=== PATIENT | female | born 1930 | race Caucasian/White ===

== ENCOUNTER 2022-06-07 00:17 | Emergency (ER) | payer MEDICARE ==
[2022-06-07] MEDS ORDERED: XYLOCAINE 1% HCL 20 ML MDV ONE (00:23)
--- NOTE | 2022-06-07 00:26 | ERPHSYRPT ---
- History of Present Illness Time Seen by Provider: 06/07/22 00:22 Source: patient, EMS Exam Limitations: clinical condition Physician History: 89 years old female resident of [facility] presented in the ER via EMS with chief complaint of fall while she went to the bathroom, lost her balance and hit her left lateral eyebrow/orbital ridge against bathtub. No loss of consciousness. Has a laceration. No difficulty movements of eyeball. Patient denies injury anywhere else. Denies any chest pain palpitations or shortness of breath before or after the fall. Occurred: just prior to arrival Severity: moderate Head Injury Location: frontal Method of Injury: fell Loss of Consciousness: no loss of consciousness Associated Symptoms: denies symptoms Allergies/Adverse Reactions: No Known Drug Allergies Allergy (Verified 03/16/16 15:01) Home Medications: Clopidogrel Bisulfate [Plavix] 75 mg PO DAILY 12/14/15 [History] Donepezil HCl 10 mg PO HS 06/07/22 [History] Escitalopram Oxalate [Lexapro] 2.5 mg PO DAILY 06/07/22 [History] Famotidine 20 mg [Pepcid 20 MG] 20 mg PO BID 06/07/22 [History] Ferrous Sulfate [Ferosul] 325 mg PO BID 06/07/22 [History] Latanoprost/Pf [Latanoprost 0.005% Eye Drop] 1 drop OP HS 06/07/22 [History] Memantine HCl 10 mg PO BID 06/07/22 [History] Timolol Maleate 0.25% Eye [Timolol 0.25% Opth Kimberly 5 ML] 1 drop OP DAILY 06/07/22 [History] clonazePAM [Clonazepam] 0.125 mg PO DAILY 06/07/22 [History] clonazePAM [Clonazepam] 0.25 mg PO HS 06/07/22 [History] Hx Tetanus, Diphtheria Vaccination/Date Given: No Hx Influenza Vaccination/Date Given: Yes Hx Pneumococcal Vaccination/Date Given: Yes - Review of Systems Constitutional: No Symptoms Eyes: No Symptoms Ears, Nose, & Throat: No Symptoms Respiratory: No Symptoms Cardiac: No Symptoms Abdominal/Gastrointestinal: No Symptoms Genitourinary Symptoms: No Symptoms Musculoskeletal: Fall Skin: Skin Lesions Neurological: Headache Endocrine: No Symptoms Hematologic/Lymphatic: No Symptoms Immunological/Allergic: No Symptoms - Past Medical History Pertinent Past Medical History: Yes Neurological History: No Pertinent History ENT History: No Pertinent History Cardiac History: Angina Respiratory History: No Pertinent History Endocrine Medical History: No Pertinent History Musculoskeletal History: No Pertinent History GI Medical History: GERD History: No Pertinent History, Other Psycho-Social History: Anxiety, Depression Female Reproductive Disorders: No Pertinent History Other Medical History: some "memory troubles". increased pressure in eyes. 3 NATURAL BIRTHS - Past Surgical History Past Surgical History: Yes Neuro Surgical History: No Pertinent History Cardiac: No Pertinent History Respiratory: No Pertinent History Gastrointestinal: Cholecystectomy Genitourinary: No Pertinent History, Other Musculoskeletal: No Pertinent History Female Surgical History: Hysterectomy Other Surgical History: bilateral oophorectomy; surgery on both hands; eye surgery (pt can't remember what was done); bladder surgery "years ago, they stretched my bladder out". - Social History Smoking Status: Never smoker Exposure to second hand smoke: No Drug Use: none Patient Lives Alone: No - Nursing Vital Signs Nursing Vital Signs: Initial Vital Signs Temperature 97.0 F 06/07/22 00:18 Pulse Rate 69 06/07/22 00:18 Respiratory Rate 16 06/07/22 00:18 Blood Pressure 174/79 06/07/22 00:18 O2 Sat by Pulse Oximetry 96 06/07/22 00:18 Pain Scale Pain Intensity 5 - [place] Coma Score Best Eye Response (Vickie): (4) open spontaneously Best Verbal Response (Vickie): (5) oriented Best Motor Response (Vickie): (6) obeys commands Vickie Total: 15 - Physical Exam General Appearance: no apparent distress, alert Head Injury: contusions, lacerations (2.5 cm laceration left lateral orbital ridge. Minimal oozing. Hematoma. No step in deformity. Intact range of motion of left eyeball.), swelling, tenderness Eye Exam: bilateral eye: normal inspection, PERRL, EOMI ENT Exam: airway nml, No evidence of ENT injury, No dental injury Neck Exam: supple, trachea midline, normal alignment, c-collar in place Cardiovascular/Respiratory Exam: chest non-tender, normal breath sounds, regular rate/rhythm Gastrointestinal/Abdominal Exam: soft, No no distention Extremity Exam: non-tender, normal range of motion, normal inspection Mental Status Exam: alert, oriented x 3, cooperative impress associate Exam: PERRL, No normal hearing Coordination/Gait Exam: normal finger to nose Motor/Sensory Exam: no motor deficit, no sensory deficit, no pronator drift DTR Exam: bicep (R): 2+, bicep (L): 2+, knee (R): 2+, knee (L): 2+ Skin Exam: normal color SpO2 Interpretation: normal SpO2: 96 O2 Delivery: Room Air Procedures - Laceration/Wound Repair Left Frontal Time of Procedure: 00:26 Wound Location: Left Wound Length (cm): 2.5 Wound's Depth, Shape: into muscle, linear Wound Explored: clean Irrigated: Yes Hibiclens Prep: Yes Anesthesia: 1% Lidocaine Volume Anesthetic (ccs): 3 Wound Repaired With: sutures Suture Size/Type: 5-0, nylon Number of Sutures: 4 Sterile Dressing Applied?: Yes Ordered Tests: Active Orders 24 hr Category Date Time Status CERVICAL SPINE WO CONTRAST [CT] Stat Exams 06/07/22 00:22 Ordered FACIAL BONES WO CONTRAST [CT] Stat Exams 06/07/22 00:22 Ordered HEAD WITHOUT CONTRAST [CT] Stat Exams 06/07/22 00:22 Ordered Medication Summary Discontinued Medications Generic Name Dose Route Start Last Admin Trade Name Freq PRN Reason Stop Dose Admin Lidocaine HCl Confirm 06/07/22 00:23 Lidocaine Hcl 1% 20 Ml Mdv 20 Ml Ml Administered 06/07/22 00:24 Dose 1 ml .ROUTE .STK-MED ONE - Progress Progress: improved, re-examined Progress Note: 06/07/22 03:21 89-year-old is evaluated for ground-level fall with injury to the left lateral orbit area. Laceration is repaired. Obtain CT head which is negative for any acute intracranial findings. CT cervical spine negative. CT facial bones showed fracture orbit with fracture of maxilla as well at multiple places. Discussed with [facility] trauma services and patient is accepted for transfer. Plan of care discussed with patient and son in detail who understand and agree with plan of transfer. She does not have injury anywhere else and it was a mechanical fall as patient is supposed to use walker for ambulation which she did not. Do not think she needs any other work-up. 06/07/22 03:[address] Other (Dr. Molina trauma services [facility]) Counseled pt/family regarding: diagnosis, need for follow-up, rad results - Departure Departure Disposition: Home Clinical Impression: Laceration of left orbital rim without complication, Fall, Orbital fracture, Maxillary fracture Condition: Stable Critical Care Time: No
[2022-06-07 03:47] VITALS: BP 115/61; PULSE 68; O2SAT 94
--- NOTE | 2022-06-07 08:46 | XRAY ---
Indication: Left frontal and left periorbital pain following fall. Multiple contiguous axial images obtained through the head without contrast. Comparison: March 16, 2016 Again age-appropriate global atrophy and progressive worsening mild periventricular degenerative micro-ischemia bilaterally. No acute intracranial hemorrhage, abnormal extra-axial fluid collection, or mass effect. New left facial and left supraorbital soft tissue swelling/hematoma. Bony calvarium intact. CT facial bones and CT cervical spine reported separately. Impression: Atrophy and degenerative micro-ischemia within normal limits for patient's age. No new/acute intracranial abnormalities. Comment: Preliminary interpretation made by [facility]. No critical discrepancy.
--- NOTE | 2022-06-07 08:52 | XRAY ---
Indication: Left frontal and left periorbital pain following fall. Multiple contiguous axial images obtained through the facial bones. Sagittal and coronal reformatted images obtained. Comparison: February Osseous structures demineralized consistent with patient's age. Patient is edentulous. Left facial and left supraorbital soft tissue swelling/hematoma. Left supraorbital subcutaneous air bubbles presumed laceration. Minimally depressed fractures involving the anterior and lateral melo of the left maxillary sinus with near-complete opacification of the left maxillary sinus. Also minimally depressed fractures lateral wall and floor left orbit. No other fracture, suspicious bony lesions, or radiopaque foreign body. Remaining paranasal sinuses and nasal passages are clear. Mild nasal septal deviation to the right. Moderate left and mild right TMJ degenerative changes. CT head and CT cervical spine reported separately. Impression: 1. Left facial and left supraorbital soft tissue swelling/hematoma. 2. Left maxillary sinus anterior and lateral wall fractures. Also left orbit lateral wall and floor fractures. 3. New complete opacification left maxillary sinus presumed blood. 4. Incidental osteopenia, mild nasal septal deviation, and bilateral TMJ degenerative changes.. Comment: Preliminary interpretation made by [facility]. No critical discrepancy.
--- NOTE | 2022-06-07 09:12 | XRAY ---
Indication: Left frontal/left periorbital and neck pain following fall. Multiple contiguous axial images obtained through the cervical spine. Sagittal and coronal reformatted images obtained. Comparison: March 16, 2016 Osseous structures demineralized consistent with patient's age. Axial images negative for acute fracture, suspicious bony lesions, or spinal canal stenosis. Slight progressive worsening mild C5-C7 degenerative changes with new vacuum disc phenomena. Also progressive worsening moderate atlantoaxial and mild/moderate multilevel bilateral degenerative facet arthropathy. Sagittal and coronal reformatted images again demonstrates accentuated cervical lordosis and C4-C7 disc space narrowing. No acute compression fracture, subluxation, or jumped facet or normal-appearing craniocervical junction. Visualized noncontrasted soft tissues demonstrates worsening moderate bilateral carotid calcifications. Stable biapical calcified pleural plaquing and scattered pulmonary fibrosis/scarring. Impression: 1. Negative acute fracture/subluxation. 2. Chronic findings including osteopenia, multilevel degenerative changes, carotid calcifications, biapical calcified pleural plaquing, and biapical pulmonary fibrosis/scarring. Comment: Preliminary interpretation made by [facility]. No critical discrepancy.
== END 2022-06-07 04:07 | disposition short-term general hospital (02) ==
LOC: ED 00:17
DX: S01.112A Laceration without foreign body of left eyelid and periocular area, initial encounter (principal); S02.32XA Fracture of orbital floor, left side, initial encounter for closed fracture; S02.842A Fracture of lateral orbital wall, left side, initial encounter for closed fracture; S02.40DA Maxillary fracture, left side, initial encounter for closed fracture; W01.198A Fall on same level from slipping, tripping and stumbling with subsequent striking against other object, initial encounter; Y92.121 Bathroom in nursing home as the place of occurrence of the external cause; Z79.02 Long term (current) use of antithrombotics/antiplatelets; Z79.899 Other long term (current) drug therapy
CPT/HCPCS: 12011; 70450; 70486; 72125; 99284

== ENCOUNTER 2022-06-22 08:03 | Inpatient (IN) | payer MEDICARE ==
[2022-06-22] MEDS ORDERED: Hydromorphone 1 mg/ml Injection IV ONE (08:11)
--- NOTE | 2022-06-22 08:24 | ERPHSYRPT ---
- History of Present Illness Time Seen by Provider: 06/22/22 08:19 Source: family (A son is present and does manage to give us some medical history regarding her right hip which is apparently according to him been fractured before.), EMS (EMS also reported from the long-term that there was no loss of consciousness with some of the bruising present on her face is from previous falls not from this fall. The EMS people also reported that on the monitor they saw runs of atrial fib with RVR.) Exam Limitations: clinical condition Physician History: Patient is an 89-year-old white female DNR from the long-term who suffered a fall at 4 AM at the long-term. She was picked up and placed back in bed and was complaining of right hip pain. With a change of shifts she was reexamined and reevaluated and apparently sent in. She has a history of frequent falls and does have bruising from some previous falls. She is alert and basically oriented but extremely hard of hearing. EMS saw what they believed to be atrial for with a rapid ventricular response while in route to the hospital. [facility] records indicate generalized anxiety disorder along with peripheral vascular disease, mild cognitive impairment, age-related osteoporosis, dry eye syndrome, abnormalities of gait and mobility, bilateral ocular hypertension, muscle weakness, GERD, history of COVID, repeated falls, maxillary fracture, left-sided fracture of the lateral orbital wall. Occurred: this morning Reason for Fall: fell from standing pos Injuries/Pain Location: head, face, pelvis, lower extremity (Right hip pain) Loss of Consciousness: no loss of consciousness Severity of Pain-Max: moderate Severity of Pain-Current: moderate Modifying Factors: Improves With: movement Associated Symptoms (Fall): chest pain (Right upper anterior chest pain), trouble walking Allergies/Adverse Reactions: No Known Drug Allergies Allergy (Verified 06/07/22 03:54) Home Medications: Clopidogrel Bisulfate [Plavix] 75 mg PO DAILY 12/14/15 [History] Donepezil HCl 10 mg PO HS 06/07/22 [History] Escitalopram Oxalate [Lexapro] 2.5 mg PO DAILY 06/07/22 [History] Famotidine 20 mg [Pepcid 20 MG] 20 mg PO BID 06/07/22 [History] Ferrous Sulfate [Ferosul] 325 mg PO BID 06/07/22 [History] Latanoprost/Pf [Latanoprost 0.005% Eye Drop] 1 drop OP HS 06/07/22 [History] Memantine HCl 10 mg PO BID 06/07/22 [History] Timolol Maleate 0.25% Eye [Timolol 0.25% Opth Kimberly 5 ML] 1 drop OP DAILY 06/07/22 [History] clonazePAM [Clonazepam] 0.125 mg PO DAILY 06/07/22 [History] clonazePAM [Clonazepam] 0.25 mg PO HS 06/07/22 [History] Hx Tetanus, Diphtheria Vaccination/Date Given: No Hx Influenza Vaccination/Date Given: Yes Hx Pneumococcal Vaccination/Date Given: Yes Travel Risk - Vaccine Status Have you recieved a Covid-19 vaccination: Yes Web Developer: Unknown - Vaccination Dates Dates if Unknown: 06/01/2020 and 06/29/2020 - Review of Systems All Other Systems: Unable due to condition (Patient is so hard of hearing that review of systems is impossible to obtain.) - Past Medical History Pertinent Past Medical History: Yes Neurological History: No Pertinent History ENT History: No Pertinent History Cardiac History: Angina Respiratory History: No Pertinent History Endocrine Medical History: No Pertinent History Musculoskeletal History: No Pertinent History GI Medical History: GERD History: No Pertinent History, Other Psycho-Social History: Anxiety, Depression Female Reproductive Disorders: No Pertinent History Other Medical History: some "memory troubles". increased pressure in eyes. 3 NATURAL BIRTHS - Past Surgical History Past Surgical History: Yes Neuro Surgical History: No Pertinent History Cardiac: No Pertinent History Respiratory: No Pertinent History Gastrointestinal: Cholecystectomy Genitourinary: No Pertinent History, Other Musculoskeletal: No Pertinent History Female Surgical History: Hysterectomy Other Surgical History: bilateral oophorectomy; surgery on both hands; eye surgery (pt can't remember what was done); bladder surgery "years ago, they stretched my bladder out". - Social History Smoking Status: Never smoker Exposure to second hand smoke: No Drug Use: none Patient Lives Alone: No - Nursing Vital Signs Nursing Vital Signs: Initial Vital Signs Temperature 97.6 F 06/22/22 08:04 Pulse Rate 86 06/22/22 08:04 Respiratory Rate 18 06/22/22 08:04 Blood Pressure 79/60 06/22/22 08:04 O2 Sat by Pulse Oximetry 90 L 06/22/22 08:04 Pain Scale Pain Intensity 2 - Vickie Coma Score Best Eye Response (Patterson): (4) open spontaneously Best Verbal Response (Vickie): (5) oriented Best Motor Response (Patterson): (6) obeys commands Vickie Total: 15 - Physical Exam General Appearance: mild distress Head Injury: contusions, ecchymosis (Some of the ecchymoses are obviously older many look acute.), swelling, tenderness ENT Exam: clotted nasal blood Neck Exam: supple, trachea midline Respiratory/Chest Exam: chest tenderness (Tenderness of the chest wall right upper anterior), normal breath sounds, No respiratory distress Cardiovascular Exam: normal heart sounds, regular rate/rhythm Gastrointestinal Exam: soft, normal bowel sounds, No distention, No guarding Rectal Exam: deferred Extremity Exam: normal inspection, normal range of motion, pelvis stable Neurologic Exam: alert, oriented x 3, other (Extremely hard of hearing) Skin Exam: abrasion, ecchymosis SpO2 Interpretation: normal, O2 applied SpO2: 100 O2 Delivery: Nasal Cannula - Course Nursing assessment & vital signs reviewed: Yes EKG Interpreted by Me: RATE (93), Sinus Rhythm, NORMAL AXIS, Non-specific ST Changes, Other (Occasional PVCs Short MO interval Left ventricular hypertrophy) - CT Exams Head CT Interpretation: Other (Impression bilateral subarachnoid hemorrhage small extra-axial hemorrhages along the greater wing of the sphenoid and the middle cranial fossa bilaterally) Maxillofacial Bones CT Interpretation: Other (Fracture of the right zygomatic arch and very likely a subtle fracture through the right maxillary sinus) Cervical Spine CT Interpretation: Other (Impression of no acute fractures seen in the cervical spine there are degenerative changes.) Chest CT Interpretation: Other (Heart size normal normal pulmonary vasculature severe coronary artery calcification seen no evidence of acute thoracic aortic aneurysm or acute intramural thoracic aortic hematoma. There is also evidence of COPD. There is also multiple pulmonary nodules) Ordered Tests: Active Orders 24 hr Category Date Time Status EKG-ER Only STAT Care 06/22/22 08:11 Active ABDOMEN AND PELVIS W/0 CONTRAS [CT] Stat Exams 06/22/22 08:10 Ordered CERVICAL SPINE WO CONTRAST [CT] Stat Exams 06/22/22 08:10 Ordered CHEST WITHOUT CONTRAST [CT] Stat Exams 06/22/22 08:10 Ordered FACIAL BONES WO CONTRAST [CT] Stat Exams 06/22/22 08:14 Ordered HEAD WITHOUT CONTRAST [CT] Stat Exams 06/22/22 08:10 Ordered AMYLASE Stat Lab 06/22/22 08:10 Completed CBC W DIFF Stat Lab 06/22/22 08:10 Completed CMP Stat Lab 06/22/22 08:10 Completed CULTURE,URINE Stat Lab 06/22/22 08:14 Ordered LIPASE Stat Lab 06/22/22 08:10 Completed PROTIME WITH INR Stat Lab 06/22/22 08:11 Ordered PTT Stat Lab 06/22/22 08:11 Ordered TROPONIN Q4H Lab 06/22/22 08:10 Completed TROPONIN Q4H Lab 06/22/22 12:15 Ordered TROPONIN Q4H Lab 06/22/22 16:15 Ordered TROPONIN Q4H Lab 06/22/22 20:15 Ordered UA W/RFX UR CULTURE Stat Lab 06/22/22 08:12 Ordered Medication Summary Generic Name Dose Route Start Last Admin Trade Name Freq PRN Reason Stop Dose Admin Sodium Chloride 1,000 mls @ 100 mls/hr 06/22/22 08:15 06/22/22 09:11 Sodium Chloride 0.9% 1000 Ml IV 07/22/22 08:14 100 mls/hr .Q10H DAYLIN Administration Discontinued Medications Generic Name Dose Route Start Last Admin Trade Name Freq PRN Reason Stop Dose Admin Hydromorphone HCl 0.5 mg 06/22/22 08:11 06/22/22 09:11 Hydromorphone 1 Mg/1ml Inj 1 Mg/Ml Syringe IV 06/22/22 08:12 0.5 mg STAT ONE Administration Hydromorphone HCl Confirm 06/22/22 09:08 Hydromorphone 1 Mg/1ml Inj 1 Mg/Ml Syringe Administered 06/22/22 09:09 Dose 1 mg .ROUTE .STK-MED ONE Lab/Rad Data: Laboratory Result Diagrams 06/22/22 08:10 06/22/22 08:10 Laboratory Results 06/22/22 06/22/22 06/22/22 Range/Units 08:10 08:10 08:10 WBC 21.0 H (4.0-10.5) x10^3/uL RBC 3.63 L (4.1-5.4) x10^6/uL Hgb 11.6 L (12.0-16.0) g/dL Hct 36.5 (35-47) % MCV 100.6 H (78-100) fL MCH 32.0 (26-32) pg MCHC 31.8 L (32-36) g/dL RDW 13.4 (11.5-14.0) % Plt Count 307 (150-450) x10^3/uL MPV 9.1 (7.5-11.0) fL Gran % 86.3 H (36.0-66.0) % Immature Gran % (Auto) 0.6 H (0.00-0.4) % Nucleat RBC Rel Count 0.0 (0.00-0.1) % Eos # (Auto) 0.01 (0-0.5) x10^3/uL Immature Gran # (Auto) 0.12 H (0.00-0.03) x10^3u/L Absolute Lymphs (auto) 1.35 (1.0-4.6) x10^3/uL Absolute Monos (auto) 1.36 H (0.0-1.3) x10^3/uL Absolute Nucleated RBC 0.00 (0.00-0.01) x10^3u/L Lymphocytes % 6.4 L (24.0-44.0) % Monocytes % 6.5 (0.0-12.0) % Eosinophils % 0.0 (0.00-5.0) % Basophils % 0.2 (0.0-0.4) % Absolute Granulocytes 18.12 H (1.4-6.9) x10^3/uL Basophils # 0.05 (0-0.4) x10^3/uL Sodium 132 L (137-145) mmol/L Potassium 3.3 L (3.5-5.1) mmol/L Chloride 97 L (98-107) mmol/L Carbon Dioxide 23 (22-30) mmol/L Anion Gap 15.1 H (5-15) MEQ/L BUN 20 H (7-17) mg/dL Creatinine 0.64 (0.52-1.04) mg/dL Estimated GFR > 60.0 ML/MIN Glucose 215 H (74-106) mg/dL Calcium 8.9 (8.4-10.2) mg/dL Total Bilirubin 0.70 (0.2-1.3) mg/dL AST 33 (14-36) U/L ALT 29 (0-35) U/L Alkaline Phosphatase 72 (38-126) U/L Troponin I < 0.012 (0.000-0.034) ng/mL Serum Total Protein 7.8 (6.3-8.2) g/dL Albumin 4.1 (3.5-5.0) g/dL Amylase 83 (30-110) U/L Lipase 49 (23-300) U/L - Progress Progress: unchanged Progress Note: 06/22/22 09:30 With return of the imaging studies we did speak with the family it is their wishes that comfort measures only be applied to this patient which is also been her wish as well she is a DNR.We spoke with Dr. oFy who also agreed with comfort measures. Discussed with : Marty Will see patient in: hospital (full admit) - Departure Departure Disposition: In-patient Admission Clinical Impression: Subarachnoid hemorrhage, Facial bones, closed fracture, Pelvic fracture, Fall Condition: Poor Critical Care Time: Yes Critical Care Time(excluding separately billable procedures): Critical 30-74 mins (35) Referrals: KRISTINE LUQUE MD [Primary Care Provider] - Follow up/PCP as directed
[2022-06-22 08:29] LABS: Absolute Neutrophil Ct (ANC) 18.12 x10^3/uL (1.4-6.9); BASOPHIL % 0.2 % (0.0-0.4); Basophil (Absolute #) 0.05 x10^3/uL (0-0.4); Eosinophil (Absolute #) 0.01 x10^3/uL (0-0.5); Hematocrit 36.5 % (35-47); Hemoglobin 11.6 g/dL (12.0-16.0); IMMATURE GRAN # 0.12 x10^3u/L (0.00-0.03); IMMATURE GRAN % 0.6 % (0.00-0.4); Lymphocyte (Absolute #) 1.35 x10^3/uL (1.0-4.6); Lymphocytes % 6.4 % (24.0-44.0); Mean Cell Volume 100.6 fL (78-100); Mean Corpuscular Hgb Concent. 31.8 g/dL (32-36); Mean Platelet Volume 9.1 fL (7.5-11.0); Monocyte (Absolute #) 1.36 x10^3/uL (0.0-1.3); Monocytes % 6.5 % (0.0-12.0); Neutrophil % 86.3 % (36.0-66.0); Platelet Count 307 x10^3/uL (150-450); Red Blood Count 3.63 x10^6/uL (4.1-5.4); Red Cell Distribution Width 13.4 % (11.5-14.0)
[2022-06-22 08:43] LABS: ALBUMIN 4.1 g/dL (3.5-5.0); ALKALINE PHOSPHATASE 72 U/L (38-126); AMYLASE 83 U/L (30-110); ANION GAP 15.1 MEQ/L (5-15); BLOOD UREA NITROGEN 20 mg/dL (7-17); CHLORIDE 97 mmol/L (98-107); Calcium 8.9 mg/dL (8.4-10.2); Carbon Dioxide 23 mmol/L (22-30); Creatinine 1 0.64 mg/dL (0.52-1.04); EST GLOMERULAR FILTRATION RATE > 60.0 ML/MIN; Glucose 215 mg/dL (74-106); LIPASE 49 U/L (23-300); Potassium 3.3 mmol/L (3.5-5.1); SGOT/AST 33 U/L (14-36); SGPT/ALT 29 U/L (0-35); SODIUM 132 mmol/L (137-145); Total Protein 7.8 g/dL (6.3-8.2)
[2022-06-22] MEDS ORDERED: Hydromorphone 1 mg/ml Injection ONE (09:08)
[2022-06-22] MEDS: Sodium Chloride 0.9% 1000 ML 1,000 ML IV SCH ×3 (09:11→22:16)
[2022-06-22] MEDS ORDERED: Hydromorphone 1 mg/ml Injection IV PRN (09:40)
[2022-06-22] MEDS ORDERED: Zofran 4 MG/2 ML VIAL IV PRN (09:40)
[2022-06-22 09:55] LABS: INR 1.08 (0.8-3.0); PROTIME 11.4 SECONDS (9.4-12.5); PTT 22.5 SECONDS (25.1-36.5)
[2022-06-22 10:09] LABS: Bacteria None Seen /HPF (None Seen); Bilirubin Negative (Negative); Blood Large (Negative); Epithelial Cells None Seen /HPF (None Seen); Glucose, Urine Negative (Negative); Ketones Trace (Negative); Leukocyte Esterase Trace (Negative); Nitrite Negative (Negative); Protein,Urine Dip 30 (Negative); RBC >100 /HPF (0-5); Specific Gravity 1.025 (1.005-1.030)
[2022-06-22 10:17] LABS: Appearance Cloudy (Clear)
[2022-06-22 10:18] LABS: ADD URINE CULTURE? ORDERED SEPARATELY (NO)
[2022-06-22] MEDS ORDERED: TYLENOL 325 MG PO PRN (13:42)
[2022-06-22] MEDS ORDERED: NORCO 5/325 MG PO PRN (14:15)
[2022-06-22] MEDS: Lexapro PO SCH (15:30)
[2022-06-22] MEDS: Ocuvite Tablet PO SCH ×2 (15:30→15:42)
[2022-06-22] MEDS: NORCO 5/325 MG PO SCH ×2 (15:31→22:15)
[2022-06-22] MEDS: clonazePAM PO SCH ×2 (15:32→22:28)
[2022-06-22] MEDS: Timolol 0.25% Opth Sol 5 ML OP SCH (15:33)
--- NOTE | 2022-06-22 16:52 | PCM.HP ---
History of Present Illness - Chief Complaint Chief Complaint: SAH, Facial FX, Pelvic Fx,Fall, COPD History of Present Illness: is a 89 year old female pt at the [facility] who was brought into ER with multiple injuries after a fall. At 0430 she was found out of bed and was put back into bed. At shift shange, it was noted that she was not acting right and seemed to have hip pain so she was brought to ER. CT showed bilat subarachnoid hemorrhages and 1 parenchymal hemorrhage. She also has R pelvis fracture and facial fractures, although it's unclear which are new and which are old (pt did have a fall recently and a healing bruise on R side of forehead). The family would like her to be SCO and a DNR form was signed. Prior to admission, she would get up every day and make her bed and tidy her room. On exam, pt denies pain to me, until we move her then she does grimace. - Review of Systems All Other Systems: Unable due to condition Medications & Allergies Home Medications: Home Medication List Clopidogrel Bisulfate [Plavix] 75 mg PO DAILY 12/14/15 [History Confirmed 06/22/22] Donepezil HCl 10 mg PO HS 06/07/22 [History Confirmed 06/22/22] Escitalopram Oxalate [Lexapro] 2.5 mg PO DAILY 06/07/22 [History Confirmed 06/22/22] Famotidine 20 mg [Pepcid 20 MG] 20 mg PO BID 06/07/22 [History Confirmed 06/22/22] Ferrous Sulfate [Ferosul] 325 mg PO BID 06/07/22 [History Confirmed 06/22/22] Latanoprost/Pf [Latanoprost 0.005% Eye Drop] 1 drop OP HS 06/07/22 [History Confirmed 06/22/22] Memantine HCl 5 mg PO BID 06/07/22 [History Confirmed 06/22/22] Timolol Maleate 0.25% Eye [Timolol 0.25% Opth Kimberly 5 ML] 1 drop OP DAILY 06/07/22 [History Confirmed 06/22/22] clonazePAM [Clonazepam] 0.125 mg PO DAILY 06/07/22 [History Confirmed 06/22/22] clonazePAM [Clonazepam] 0.25 mg PO HS 06/07/22 [History Confirmed 06/22/22] Acetaminophen 325 mg [Tylenol 325 mg] 650 mg PO Q4H PRN 06/22/22 [History Confirmed 06/22/22] Vits A,C,E/Lutein/Minerals [I-Maryam Tablet] 1 each PO DAILY 06/22/22 [History Confirmed 06/22/22] Allergies/Adverse Reactions: Allergies Allergy/AdvReac Type Severity Reaction Status Date / Time No Known Drug Allergies Allergy Verified 06/07/22 03:54 - Past Medical History Past Medical History: Yes Neurological History: No Pertinent History ENT History: No Pertinent History Cardiac History: Angina Respiratory History: No Pertinent History Endocrine Medical History: No Pertinent History Musculoskelatal History: No Pertinent History GI Medical History: GERD History: No Pertinent History, Other Pyscho-Social History: Anxiety, Depression Reproductive Disorders: No Pertinent History Comment: some "memory troubles". increased pressure in eyes. 3 NATURAL BIRTHS. HYSTERECTOMY. HIP REPLACEMENT - Female History Are you now?: No - Past Surgical History Past Surgical History: Yes Neuro Surgical History: No Pertinent History Cardiac History: No Pertinent History Respiratory Surgery: No Pertinent History GI Surgical History: Cholecystectomy Genitourinary Surgical Hx: No Pertinent History, Other Musculskeletal Surgical Hx: No Pertinent History Female Surgical History: Hysterectomy Other Surgical History: bilateral oophorectomy; surgery on both hands; eye surgery (pt can't remember what was done); bladder surgery "years ago, they stretched my bladder out". - Social History Smoking Status: Never smoker Exposure to second hand smoke: No Alcohol: None Drug Use: none - Physical Exam Vital Signs: Vital Signs - 24 hr Temp Pulse Resp BP Pulse Ox 06/22/22 10:54 98 F 73 16 96/56 90 L 06/22/22 10:11 97.3 F 80 20 86/46 88 L 06/22/22 09:35 100 06/22/22 09:06 97.2 F 83 22 92/57 100 06/22/22 08:44 82 23 112/57 97 06/22/22 08:04 97.6 F 86 18 79/60 90 L General Appearance: no apparent distress, thin Neurologic Exam: alert, other (very hard of hearing.) Eye Exam: other (developing bruise around L eye. Healing bruise around R eye.) Ears, Nose, Throat Exam: moist mucous membranes Neck Exam: mass (central anterior neck, firm) Respiratory Exam: normal breath sounds, lungs clear, No crackles/rales, No rhonchi, No wheezing Cardiovascular Exam: normal heart sounds, irregular, No murmur Gastrointestinal/Abdomen Exam: soft, normal bowel sounds, No tenderness, No distention, No mass, No guarding, No rebound Extremity Exam: other (R hip at greater trochanter there is very mild bruising) Skin Exam: warm, dry, No rash Results - Labs Lab/Micro Results: Lab Results-Last 24 Hours 06/22/22 06/22/22 06/22/22 Range/Units 08:10 08:10 08:10 WBC 21.0 H (4.0-10.5) x10^3/uL RBC 3.63 L (4.1-5.4) x10^6/uL Hgb 11.6 L (12.0-16.0) g/dL Hct 36.5 (35-47) % MCV 100.6 H (78-100) fL MCH 32.0 (26-32) pg MCHC 31.8 L (32-36) g/dL RDW 13.4 (11.5-14.0) % Plt Count 307 (150-450) x10^3/uL MPV 9.1 (7.5-11.0) fL Gran % 86.3 H (36.0-66.0) % Immature Gran % (Auto) 0.6 H (0.00-0.4) % Nucleat RBC Rel Count 0.0 (0.00-0.1) % Eos # (Auto) 0.01 (0-0.5) x10^3/uL Immature Gran # (Auto) 0.12 H (0.00-0.03) x10^3u/L Absolute Lymphs (auto) 1.35 (1.0-4.6) x10^3/uL Absolute Monos (auto) 1.36 H (0.0-1.3) x10^3/uL Absolute Nucleated RBC 0.00 (0.00-0.01) x10^3u/L Lymphocytes % 6.4 L (24.0-44.0) % Monocytes % 6.5 (0.0-12.0) % Eosinophils % 0.0 (0.00-5.0) % Basophils % 0.2 (0.0-0.4) % Absolute Granulocytes 18.12 H (1.4-6.9) x10^3/uL Basophils # 0.05 (0-0.4) x10^3/uL PT (9.4-12.5) SECONDS INR (0.8-3.0) APTT (25.1-36.5) SECONDS Sodium 132 L (137-145) mmol/L Potassium 3.3 L (3.5-5.1) mmol/L Chloride 97 L (98-107) mmol/L Carbon Dioxide 23 (22-30) mmol/L Anion Gap 15.1 H (5-15) MEQ/L BUN 20 H (7-17) mg/dL Creatinine 0.64 (0.52-1.04) mg/dL Estimated GFR > 60.0 ML/MIN Glucose 215 H (74-106) mg/dL Calcium 8.9 (8.4-10.2) mg/dL Total Bilirubin 0.70 (0.2-1.3) mg/dL AST 33 (14-36) U/L ALT 29 (0-35) U/L Alkaline Phosphatase 72 (38-126) U/L Troponin I < 0.012 (0.000-0.034) ng/mL Serum Total Protein 7.8 (6.3-8.2) g/dL Albumin 4.1 (3.5-5.0) g/dL Amylase 83 (30-110) U/L Lipase 49 (23-300) U/L Urine Color (Yellow) Urine Appearance (Clear) Urine pH (4.6-8.0) Ur Specific [place] (1.005-1.030) Urine Protein (Negative) Urine Glucose (UA) (Negative) mg/dL Urine Ketones (Negative) Urine Blood (Negative) Urine Nitrite (Negative) Urine Bilirubin (Negative) Urine Urobilinogen (0.2) mg/dL Ur Leukocyte Esterase (Negative) U Hyaline Cast (Auto) (0-2) /LPF Urine Microscopic RBC (0-5) /HPF Urine Microscopic WBC (0-5) /HPF Ur Epithelial Cells (None Seen) /HPF Urine Bacteria (None Seen) /HPF Urine Culture Reflexed (NO) 06/22/22 06/22/22 Range/Units 09:30 09:46 WBC (4.0-10.5) x10^3/uL RBC (4.1-5.4) x10^6/uL Hgb (12.0-16.0) g/dL Hct (35-47) % MCV (78-100) fL MCH (26-32) pg MCHC (32-36) g/dL RDW (11.5-14.0) % Plt Count (150-450) x10^3/uL MPV (7.5-11.0) fL Gran % (36.0-66.0) % Immature Gran % (Auto) (0.00-0.4) % Nucleat RBC Rel Count (0.00-0.1) % Eos # (Auto) (0-0.5) x10^3/uL Immature Gran # (Auto) (0.00-0.03) x10^3u/L Absolute Lymphs (auto) (1.0-4.6) x10^3/uL Absolute Monos (auto) (0.0-1.3) x10^3/uL Absolute Nucleated RBC (0.00-0.01) x10^3u/L Lymphocytes % (24.0-44.0) % Monocytes % (0.0-12.0) % Eosinophils % (0.00-5.0) % Basophils % (0.0-0.4) % Absolute Granulocytes (1.4-6.9) x10^3/uL Basophils # (0-0.4) x10^3/uL PT 11.4 (9.4-12.5) SECONDS INR 1.08 (0.8-3.0) APTT 22.5 L (25.1-36.5) SECONDS Sodium (137-145) mmol/L Potassium (3.5-5.1) mmol/L Chloride (98-107) mmol/L Carbon Dioxide (22-30) mmol/L Anion Gap (5-15) MEQ/L BUN (7-17) mg/dL Creatinine (0.52-1.04) mg/dL Estimated GFR ML/MIN Glucose (74-106) mg/dL Calcium (8.4-10.2) mg/dL Total Bilirubin (0.2-1.3) mg/dL AST (14-36) U/L ALT (0-35) U/L Alkaline Phosphatase (38-126) U/L Troponin I (0.000-0.034) ng/mL Serum Total Protein (6.3-8.2) g/dL Albumin (3.5-5.0) g/dL Amylase (30-110) U/L Lipase (23-300) U/L Urine Color Dark Yellow A (Yellow) Urine Appearance Cloudy A (Clear) Urine pH 6.0 (4.6-8.0) Ur Specific [place] 1.025 (1.005-1.030) Urine Protein 30 (Negative) Urine Glucose (UA) Negative (Negative) mg/dL Urine Ketones Trace A (Negative) Urine Blood Large A (Negative) Urine Nitrite Negative (Negative) Urine Bilirubin Negative (Negative) Urine Urobilinogen 1.0 A (0.2) mg/dL Ur Leukocyte Esterase Trace A (Negative) U Hyaline Cast (Auto) 6-10 A (0-2) /LPF Urine Microscopic RBC >100 A (0-5) /HPF Urine Microscopic WBC 3-5 (0-5) /HPF Ur Epithelial Cells None Seen (None Seen) /HPF Urine Bacteria None Seen (None Seen) /HPF Urine Culture Reflexed ORDERED SEPARATELY (NO) - Radiology Impressions Radiology Exams & Impressions: Radiology Procedures Category Date Time Status ABDOMEN AND PELVIS W/0 CONTRAS [CT] Stat Exams 06/22/22 08:10 Taken CERVICAL SPINE WO CONTRAST [CT] Stat Exams 06/22/22 08:10 Taken CHEST WITHOUT CONTRAST [CT] Stat Exams 06/22/22 08:10 Taken FACIAL BONES WO CONTRAST [CT] Stat Exams 06/22/22 08:14 Taken HEAD WITHOUT CONTRAST [CT] Stat Exams 06/22/22 08:10 Taken Assessment/Plan (1) Subarachnoid hemorrhage Current Visit: Yes Status: Acute Assessment & Plan: Family is aware that prognosis is very guarded to poor and they would like her kept comfortable. Will try giving some scheduled po pain meds, if tolerated. Code(s): I60.9 - NONTRAUMATIC SUBARACHNOID HEMORRHAGE, UNSPECIFIED (2) Arrhythmia Current Visit: Yes Status: Acute Qualifiers: Arrhythmia type: other cardiac arrhythmia Qualified Code(s): I49.8 - Other specified cardiac arrhythmias Assessment & Plan: Will observe for now. Pt could not have any blood thinners currently. Code(s): I49.9 - CARDIAC ARRHYTHMIA, UNSPECIFIED (3) Leukocytosis Current Visit: Yes Status: Acute Qualifiers: Leukocytosis type: unspecified Qualified Code(s): D72.829 - Elevated white blood cell count, unspecified Assessment & Plan: may be reactive. However, there is a left shift. Lots of hematuria (which could be from pelvic fx), so will go ahead with 1g rocephin IV while UCx is pending. Code(s): D72.829 - ELEVATED WHITE BLOOD CELL COUNT, UNSPECIFIED (4) Hypokalemia Current Visit: Yes Status: Acute Code(s): E87.6 - HYPOKALEMIA (5) Facial bones, closed fracture Current Visit: Yes Status: Acute Qualifiers: Encounter type: initial encounter Facial bone/location: unspecified facial bone Qualified Code(s): S02.92XA - Unspecified fracture of facial bones, initial encounter for closed fracture Assessment & Plan: final reports are pending. Code(s): S02.92XA - UNSP FRACTURE OF FACIAL BONES, INIT FOR CLOS FX (6) Fall Current Visit: Yes Status: Acute Qualifiers: Encounter type: initial encounter Qualified Code(s): W19.XXXA - Unspecified fall, initial encounter Code(s): W19.XXXA - UNSPECIFIED FALL, INITIAL ENCOUNTER (7) Pelvic fracture Current Visit: Yes Status: Acute Qualifiers: Encounter type: initial encounter Code(s): S32.9XXA - FRACTURE OF UNSP PARTS OF LUMBOSACRAL SPINE AND PELVIS, INIT (8) DNR (do not resuscitate) Current Visit: Yes Status: Acute
[2022-06-22] MEDS: ROCEPHIN 1 Gm-D5w 50 ml Bag** 1 G/50 ML IVPB IV SCH (17:01)
--- NOTE | 2022-06-22 19:40 | XRAY ---
Indication: Status post fall. Poor historian. Multiple contiguous images obtained through the head without contrast. Comparison: June 07, 2022 Study is slightly degraded by motion artifact throughout. New focus small subarachnoid hemorrhage left vertex and posterior right sylvian fissure. Smaller acute hemorrhage left paramesencephalic cistern and small subdural hematomas both temporal lobes anteriorly. Fourth ventricle is midline without hydrocephalus. Bony calvarium intact. CT facial bones and CT cervical spine reported separately. Impression: 1. Motion artifact. 2. New multifocal bilateral acute intracranial hemorrhages as detailed. Comment: Preliminary interpretation made by [facility]. No critical discrepancy.
--- NOTE | 2022-06-22 19:48 | XRAY ---
Indication: Status post fall. Poor historian. Multiple contiguous images obtained through the facial bones. Sagittal and coronal reformatted images obtained. Comparison: June 07, 2022 Study slightly degraded by motion artifact. Patient is again edentulous with osteopenia. New minimally depressed acute fracture right zygomatic arch with mild overlying soft tissue swelling. No other acute fracture, suspicious bony lesions, or radiopaque foreign body. Stable minimally depressed fractures lateral wall and floor left orbit with interval healing. Interval clearing left maxillary sinus with healed fractures. New mild fluid leveling right maxillary sinus and mild mucosal thickening right ethmoid/right sphenoid sinuses. Remaining paranasal sinuses and nasal passages are clear. Stable minimal nasal septal deviation to the right and bilateral TMJ degenerative changes. CT head and CT cervical spine reported separately. Impression: 1. Motion artifact. 2. New minimally depressed fracture right zygomatic arch. 3. New paranasal sinuses disease. 4. Osteopenia, healing left orbital fractures, nasoseptal deviation, and bilateral TMJ degenerative changes. Comment: Preliminary interpretation made by C. No critical discrepancy.
--- NOTE | 2022-06-22 19:51 | XRAY ---
Indication: Status post fall. Poor historian. Multiple contiguous images obtained through the cervical spine. Sagittal and coronal reformatted images obtained. Comparison: June 07, 2022 Study is slightly degraded by motion artifact throughout. Again osteopenia with grossly stable mild multilevel degenerative changes including C6-C7 degenerative vacuum disc phenomena. Axial images negative for acute fracture, suspicious bony lesions, or spinal canal stenosis. Sagittal and coronal reformatted images again demonstrates accentuated cervical lordosis. No acute compression fracture, subluxation, or jumped facet. Normal appearing craniocervical junction. Visualized noncontrasted soft tissues again demonstrates moderate bilateral carotid calcifications. CT facial bones, CT head, and CT chest reported separately. Impression: 1. Motion artifact. 2. Continued negative acute fracture/subluxation. 3. Again osteopenia, multilevel degenerative changes, and bilateral carotid calcifications. Comment: Preliminary interpretation made by C. No critical discrepancy.
--- NOTE | 2022-06-22 19:56 | XRAY ---
Indication: Status post fall. Poor historian. Multiple contiguous images obtained through the chest without contrast. Comparison: June 07, 2016 Lungs again hyperinflated with diffuse scattered fibrosis/scarring and subpleural cavitary lesions in the medial right mid to upper lung. No new pulmonary mass, infiltrate, effusion, or pneumothorax. Heart not enlarged again with coronary calcifications. Aorta remains mildly arteriosclerotic without aneurysm. No pathologic mediastinal lymphadenopathy. Bony thorax intact again with osteopenia, mild/moderate multilevel degenerative spondylosis, and mild dextroscoliosis. New T7-T9 and T11-T12 compression fractures of uncertain chronicity. CT abdomen and pelvis and CT cervical spine reported separately. Impression: 1. Grossly stable hyperinflated lungs with scattered fibrosis/scarring and right lung subpleural cystic changes are differential unchanged. 2. T7-T9 and T11-T12 compression fractures of synchronicity. 3. Again chronic findings including arteriosclerotic disease and chronic bony findings. Comment: Preliminary interpretation made by C. No critical discrepancy.
--- NOTE | 2022-06-22 20:02 | XRAY ---
Indication: Status post fall. Poor historian. Multiple contiguous images obtained through the abdomen and pelvis without contrast. Comparison: January 03, 2016 CT chest reported separately. Noncontrasted stomach and bowel loops nonobstructed again with scattered colonic diverticulosis. New mild rectal fecal impaction. Again cholecystectomy, hysterectomy, and calcified splenic granulomas. No free fluid/air. Remaining liver, pancreas, spleen, adrenal glands, kidneys, and bladder are unremarkable for noncontrast exam. Again mild scattered aortoiliac calcifications without AAA. Bone windows demonstrates new comminuted fracture right innominate bone adjacent to the SI joint. Minimal diastasis right SI joint. Also new acute comminuted fracture right pubic symphysis. New findings remote-appearing fracture superior endplate L3 with 25-50% height loss, remote right inferior pubic ramus fracture, and bilateral proximal femur orthopedic hardware. Remaining osseous structures again demonstrates osteopenia. Impression: 1. New acute comminuted fractures right innominate bone and right pubic symphysis. Minimal diastasis right SI joint. 2. New mild rectal fecal impaction. 3. Chronic findings including colonic diverticulosis, arteriosclerotic disease, and chronic bony findings. Comment: Preliminary interpretation made by [facility]. No critical discrepancy.
[2022-06-22] MEDS ORDERED: NON-FORMULARY ITEM (Latanoprost/Pf [Latanoprost 0.005% Eye Drop] 7.5 ML Drops) OP SCH (22:00)
[2022-06-22] MEDS ORDERED: CLONAZEPAM 0.25 MG PO SCH (22:00)
[2022-06-22] MEDS: Xalatan OP SCH (22:19)
[2022-06-22] MEDS: Pepcid 20 MG PO SCH (22:20)
[2022-06-23] MEDS: NORCO 5/325 MG PO SCH ×6 (00:30→20:05)
[2022-06-23] MEDS: ROCEPHIN 1 Gm-D5w 50 ml Bag** 1 G/50 ML IVPB IV SCH (08:54)
[2022-06-23] MEDS: Pepcid 20 MG PO SCH ×2 (08:55→22:07)
[2022-06-23] MEDS: Lexapro PO SCH (08:55)
[2022-06-23] MEDS: Ocuvite Tablet PO SCH (08:55)
[2022-06-23] MEDS: clonazePAM PO SCH ×2 (08:55→22:06)
[2022-06-23] MEDS: Timolol 0.25% Opth Sol 5 ML OP SCH (08:55)
[2022-06-23] MEDS: Docusate Sodium 100 MG PO SCH ×2 (08:59→22:07)
[2022-06-23] MEDS ORDERED: VITS A C E PO SCH (10:00)
[2022-06-23] MEDS ORDERED: MINERALS PO SCH (10:00)
[2022-06-23] MEDS ORDERED: LUTEIN PO SCH (10:00)
[2022-06-23] MEDS ORDERED: CLONAZEPAM 0.125 MG PO SCH (10:00)
[2022-06-23] MEDS ORDERED: NON-FORMULARY ITEM (Escitalopram Oxalate [Lexapro] 5 MG Tablet) PO SCH (10:00)
[2022-06-23 10:25] LABS: Absolute Neutrophil Ct (ANC) 5.46 x10^3/uL (1.4-6.9); BASOPHIL % 0.3 % (0.0-0.4); Basophil (Absolute #) 0.02 x10^3/uL (0-0.4); Eosinophil % 0.3 % (0.00-5.0); Eosinophil (Absolute #) 0.02 x10^3/uL (0-0.5); Hemoglobin 7.9 g/dL (12.0-16.0); IMMATURE GRAN # 0.02 x10^3u/L (0.00-0.03); IMMATURE GRAN % 0.3 % (0.00-0.4); Lymphocyte (Absolute #) 0.81 x10^3/uL (1.0-4.6); Lymphocytes % 11.6 % (24.0-44.0); Mean Cell Volume 100.8 fL (78-100); Mean Corpuscular Hemoglobin 31.9 pg (26-32); Mean Corpuscular Hgb Concent. 31.6 g/dL (32-36); Monocyte (Absolute #) 0.68 x10^3/uL (0.0-1.3); Monocytes % 9.7 % (0.0-12.0); Neutrophil % 77.8 % (36.0-66.0); Platelet Count 186 x10^3/uL (150-450); Red Blood Count 2.48 x10^6/uL (4.1-5.4); Red Cell Distribution Width 13.8 % (11.5-14.0)
--- NOTE | 2022-06-23 10:55 | PCM.NOTE ---
Date and Time: 06/23/22 1051 Subjective Assessment: She has been talking to some of the staff, although often can't answer questions. She denies pain. Only 75 cc urine out last night, although it has been light yellow and clear. - Review of Systems All Other Systems: Unable due to dementia Objective Exam General Appearance: no apparent distress, alert Neurologic Exam: disoriented, other (very [place]UGUST[place].) Skin Exam: warm, dry, other (Healing bruise lateral to R eye. Newer bruise L lower eyelid.) Ears, Nose, Throat Exam: other (throat with decreased size of mass; bruise is present.) Respiratory Exam: diminished breath sounds (fair air exchange), No crackles/rales, No rhonchi, No wheezing Cardiovascular Exam: regular rate/rhythm, normal heart sounds, No murmur Gastrointestinal/Abdomen Exam: soft, normal bowel sounds, No tenderness, No distention, No mass, No guarding, No rebound Extremity Exam: normal inspection, No pedal edema, No swelling Back Exam: other (kyphotic) OBJECTIVE DATA Vital Signs: Vital Signs - 24 hr Temp Pulse Resp BP Pulse Ox 06/23/22 07:58 97.4 F 89 17 106/50 90 L 06/23/22 04:00 98.3 F 87 16 108/58 95 06/23/22 00:00 98.6 F 76 16 100/54 92 L 06/22/22 20:00 98.6 F 74 16 95/54 93 L 06/22/22 16:52 97.9 F 59 L 16 88/51 94 L 06/22/22 10:54 98 F 73 16 96/56 90 L Pain Assessment - Last Documented Pain Intensity 0 Pain Scale Used 0-10 Pain Scale Intake and Output: Intake & Output 06/20/22 06/21/22 06/22/22 06/23/22 11:59 11:59 11:59 11:59 Intake Total 1547 Output Total 275 Balance 1272 Weight 43 kg Radiology Exams: Radiology Procedures Category Date Time Status ABDOMEN AND PELVIS W/0 CONTRAS [CT] Stat Exams 06/22/22 08:10 Completed CERVICAL SPINE WO CONTRAST [CT] Stat Exams 06/22/22 08:10 Completed CHEST WITHOUT CONTRAST [CT] Stat Exams 06/22/22 08:10 Completed FACIAL BONES WO CONTRAST [CT] Stat Exams 06/22/22 08:14 Completed HEAD WITHOUT CONTRAST [CT] Stat Exams 06/22/22 08:10 Completed Assessment/Plan (1) Subarachnoid hemorrhage Current Visit: Yes Status: Acute Assessment & Plan: clinically she appears to be stable; prognosis remains guarded. Code(s): I60.9 - NONTRAUMATIC SUBARACHNOID HEMORRHAGE, UNSPECIFIED (2) Anemia Current Visit: Yes Status: Acute Qualifiers: Anemia type: iron deficiency Iron deficiency anemia type: other iron defi ciency Qualified Code(s): D50.8 - Other iron deficiency anemias Assessment & Plan: likely due to acute blood loss with the fall - will continue to follow; if acute, will have to discuss with family whether they wish to transfuse or not. Code(s): D64.9 - ANEMIA, UNSPECIFIED (3) Arrhythmia Current Visit: Yes Status: Acute Qualifiers: Arrhythmia type: other cardiac arrhythmia Qualified Code(s): I49.8 - Other specified cardiac arrhythmias Code(s): I49.9 - CARDIAC ARRHYTHMIA, UNSPECIFIED (4) Leukocytosis Current Visit: Yes Status: Acute Qualifiers: Leukocytosis type: unspecified Qualified Code(s): D72.829 - Elevated white blood cell count, unspecified Assessment & Plan: will recheck Code(s): D72.829 - ELEVATED WHITE BLOOD CELL COUNT, UNSPECIFIED (5) Hypokalemia Current Visit: Yes Status: Acute Code(s): E87.6 - HYPOKALEMIA (6) Facial bones, closed fracture Current Visit: Yes Status: Acute Qualifiers: Encounter type: initial encounter Facial bone/location: unspecified facial bone Qualified Code(s): S02.92XA - Unspecified fracture of facial bones, initial encounter for closed fracture Code(s): S02.92XA - UNSP FRACTURE OF FACIAL BONES, INIT FOR CLOS FX (7) Fall Current Visit: Yes Status: Acute Qualifiers: Encounter type: initial encounter Qualified Code(s): W19.XXXA - Unspecified fall, initial encounter Code(s): W19.XXXA - UNSPECIFIED FALL, INITIAL ENCOUNTER (8) Pelvic fracture Current Visit: Yes Status: Acute Qualifiers: Encounter type: initial encounter Code(s): S32.9XXA - FRACTURE OF UNSP PARTS OF LUMBOSACRAL SPINE AND PELVIS, INIT (9) DNR (do not resuscitate) Current Visit: Yes Status: Acute (10) Oliguria Current Visit: Yes Status: Acute Assessment & Plan: recheck labs Code(s): R34 - ANURIA AND OLIGURIA
[2022-06-23 11:11] LABS: ANION GAP 8.8 MEQ/L (5-15); BLOOD UREA NITROGEN 24 mg/dL (7-17); CHLORIDE 102 mmol/L (98-107); Calcium 7.9 mg/dL (8.4-10.2); Carbon Dioxide 27 mmol/L (22-30); Creatinine 1 0.55 mg/dL (0.52-1.04); EST GLOMERULAR FILTRATION RATE > 60.0 ML/MIN; Glucose 119 mg/dL (74-106); Potassium 3.8 mmol/L (3.5-5.1); SODIUM 134 mmol/L (137-145)
[2022-06-23] MEDS: Xalatan OP SCH (22:11)
[2022-06-24] MEDS: NORCO 5/325 MG PO SCH ×7 (00:23→23:50)
[2022-06-24] MEDS: Ocuvite Tablet PO SCH (08:06)
[2022-06-24] MEDS: Pepcid 20 MG PO SCH ×2 (08:07→21:21)
[2022-06-24] MEDS: clonazePAM PO SCH ×2 (08:08→21:21)
[2022-06-24] MEDS: Lexapro PO SCH (08:10)
[2022-06-24] MEDS: Timolol 0.25% Opth Sol 5 ML OP SCH (08:18)
[2022-06-24] MEDS: Docusate Sodium 100 MG PO SCH ×2 (10:32→21:20)
[2022-06-24] MEDS: ROCEPHIN 1 Gm-D5w 50 ml Bag** 1 G/50 ML IVPB IV SCH (10:32)
[2022-06-24] MEDS: Sodium Chloride 0.9% 1000 ML 1,000 ML IV SCH ×2 (10:34→16:50)
[2022-06-24 13:28] LABS: Hematocrit 22.9 % (35-47); Hemoglobin 7.3 g/dL (12.0-16.0)
[2022-06-24 16:46] LABS: ABO TYPING A
[2022-06-24 16:47] LABS: Antibody Screen NEGATIVE (NEGATIVE); RH TYPING POSITIVE
[2022-06-24 16:48] LABS: CROSS MATCH (PRBC) COMPATIBLE (COMPATIBLE)
--- NOTE | 2022-06-24 17:56 | PCM.NOTE ---
Date and Time: 06/24/221753 Subjective Assessment: doing ok - Review of Systems Constitutional: No Fever, No Chills Eyes: No Symptoms Ears, Nose, & Throat: No Symptoms Respiratory: No Cough, No Short Of Breath Cardiac: No Chest Pain, No Edema, No Syncope Abdominal/Gastrointestinal: No Abdominal Pain, No Nausea, No Vomiting, No Diarrhea Genitourinary Symptoms: No Dysuria Musculoskeletal: No Back Pain, No Neck Pain Skin: No Rash Neurological: No Dizziness, No Focal Weakness, No Sensory Changes Psychological: No Symptoms Endocrine: No Symptoms Hematologic/Lymphatic: No Symptoms Immunological/Allergic: No Symptoms Objective Exam General Appearance: no apparent distress, alert Neurologic Exam: alert, oriented x 3, cooperative, normal mood/affect, nml cerebellar function, sensation nml, No motor deficits Skin Exam: normal color, warm, dry Eye Exam: PERRL, EOMI, eyes nml inspection Ears, Nose, Throat Exam: normal ENT inspection, pharynx normal, moist mucous membranes Neck Exam: normal inspection, non-tender, supple, full range of motion Respiratory Exam: normal breath sounds, lungs clear, No respiratory distress Cardiovascular Exam: regular rate/rhythm, normal heart sounds Gastrointestinal/Abdomen Exam: soft, No tenderness, No mass Extremity Exam: normal inspection, normal range of motion Back Exam: normal inspection, normal range of motion, No CVA tenderness, No vertebral tenderness Pelvic Exam: deferred Rectal Exam: deferred OBJECTIVE DATA Vital Signs: Vital Signs - 24 hr Temp Pulse Resp BP Pulse Ox 06/24/22 16:00 98.4 F 66 18 113/53 91 L 06/24/22 12:02 93 L 06/24/22 11:29 97.3 F 91 H 18 106/54 92 L 06/24/22 07:05 98.4 F 91 H 19 112/56 97 06/24/22 04:00 16 96 06/24/22 00:00 98.2 F 75 16 106/56 92 L 06/23/22 22:19 91 L 06/23/22 19:28 97.8 F 65 16 104/54 95 Pain Assessment - Last Documented Pain Intensity 0 Pain Scale [facility] Intake and Output: Intake & Output 06/22/22 06/23/22 06/24/22 06/25/22 11:59 11:59 11:59 11:59 Intake Total 1547 1041 843 Output Total 275 575 250 Balance 1272 487 593 Weight 43 kg Lab Results: Lab Results-Last 24 Hours 06/24/22 06/24/22 06/24/22 Range/Units 12:39 14:45 14:45 Hgb 7.3 L (12.0-16.0) g/dL Hct 22.9 L (35-47) % ABO Group A Rh Factor POSITIVE Antibody Screen NEGATIVE (NEGATIVE) Crossmatch COMPATIBLE COMPATIBLE (COMPATIBLE) Multi-Disciplinary Progress Notes: Multi-Disciplinary Progress Notes 06/24/22 14:46 Physical Therapy Note by Rambo(L#[id number])Laya HOLDING P.T. EVAL THIS DATE D/T CONTRAINDICATION D/T LOW HGB. PT. TO RECEIVE BLOOD TRANSFUSION. WILL ATTEMPT TOMORROW IF HGB IMPROVED. Initialized on 06/24/22 14:46 - END OF NOTE 06/24/22 10:04 Case Management Note by Alanna Faria S/W [facility] AT [facility]- PATIENT CAN RETURN WHEN MEDICALLY READY. NO PRECERT REQUIRED Initialized on 06/24/22 10:04 - END OF NOTE Assessment/Plan (1) Subarachnoid hem w/o coma Current Visit: Yes Status: Acute Qualifiers: Encounter type: sequela Qualified Code(s): S06.6X0S - Traumatic subarachnoid hemorrhage without loss of consciousness, sequela Code(s): S06.6X0A - TRAUM SUBRAC HEM W/O LOSS OF CONSCIOUSNESS, INIT (2) Anemia Current Visit: Yes Status: Acute Qualifiers: Anemia type: iron deficiency Iron deficiency anemia type: chronic blood loss Qualified Code(s): D50.0 - Iron deficiency anemia secondary to blood loss (chronic) Code(s): D64.9 - ANEMIA, UNSPECIFIED (3) Facial bones, closed fracture Current Visit: Yes Status: Acute Qualifiers: Encounter type: initial encounter Facial bone/location: unspecified facial bone Qualified Code(s): S02.92XA - Unspecified fracture of facial bones, initial encounter for closed fracture Code(s): S02.92XA - UNSP FRACTURE OF FACIAL BONES, INIT FOR CLOS FX (4) Fall Current Visit: Yes Status: Acute Qualifiers: Encounter type: subsequent encounter Qualified Code(s): W19.XXXD - Unspecified fall, subsequent encounter Code(s): W19.XXXA - UNSPECIFIED FALL, INITIAL ENCOUNTER (5) Pelvic fracture Current Visit: Yes Status: Acute Qualifiers: Encounter type: subsequent encounter Pelvic bone location: other part of pelvis Fracture type: closed Fracture healing: with routine healing Qualified Code(s): S32.89XD - Fracture of other parts of pelvis, subsequent encounter for fracture with routine healing Code(s): S32.9XXA - FRACTURE OF UNSP PARTS OF LUMBOSACRAL SPINE AND PELVIS, INIT (6) Maxillary fracture Current Visit: No Status: Acute Code(s): S02.401A - MAXILLARY FRACTURE, UNSPECIFIED SIDE, INIT
[2022-06-24] MEDS: Xalatan OP SCH (21:21)
[2022-06-25 01:42] LABS: Hematocrit 36.1 % (35-47); Hemoglobin 11.5 g/dL (12.0-16.0)
[2022-06-25] MEDS: NORCO 5/325 MG PO SCH ×2 (04:01→08:17)
[2022-06-25 07:53] VITALS: BP 134/64; PULSE 82; O2SAT 94
--- NOTE | 2022-06-25 08:02 | PCM.DS ---
Discharge Summary Date of Admission: 06/22/22 10:40 Admitting Physician: GUZMAN SAMUELS Primary Care Provider: KRISTINE LUQUE Allergies Allergies No Known Drug Allergies Allergy (Verified 06/07/22 03:54) Hospital Summary - Hospital Course Hospital Course: Chief Complaint Diagnosis SAH, Facial FX, Pelvic Fx,Fall, COPD Allergies Allergy/AdvReac Type Severity Reaction Status Date / Time No Known Drug Allergies Allergy Verified 06/07/22 03:54 Vital Signs (Last 24 hours) Temp Pulse Resp BP Pulse Ox 06/25/22 07:52 98.7 F 82 16 134/64 94 L 06/25/22 04:00 98.0 F 88 17 131/60 96 06/24/22 23:48 98.4 F 61 20 118/56 95 06/24/22 20:00 98.2 F 66 111/67 06/24/22 19:25 91 L 06/24/22 16:00 98.4 F 66 18 113/53 91 L 06/24/22 12:02 93 L 06/24/22 11:29 97.3 F 91 H 18 106/54 92 L Home Medications Medication Instructions Recorded Confirmed Last Taken Type Acetaminophen 325 mg [Tylenol 650 mg PO Q4H PRN 06/22/22 06/22/22 Unknown History 325 mg] Vits A,C,E/Lutein/Minerals [I-Maryam 1 each PO DAILY 06/22/22 06/22/22 06/21/22 History Tablet] Current Medications Generic Name Dose Route Start Last Admin Trade Name Freq PRN Reason Stop Dose Admin Acetaminophen 650 mg 06/22/22 13:42 Acetaminophen 325 Mg Tablet PO 07/22/22 13:41 Q4H/PRN PRN PAIN Hydrocodone Bitart/Acetaminophen 1 tab 06/22/22 16:00 06/25/22 04:01 Hydrocodone/Apap 5/325 1 Tab Tablet PO 06/27/22 15:59 1 tab Q4H DAYLIN Administration Clonazepam 0.125 mg 06/22/22 14:00 06/24/22 08:08 Clonazepam 0.5 Mg Tablet PO 07/22/22 13:59 0.125 mg DAILY DAYLIN Administration Clonazepam 0.25 mg 06/22/22 22:00 06/24/22 21:21 Clonazepam 0.5 Mg Tablet PO 07/22/22 21:59 0.25 mg HS DAYLIN Administration Docusate Sodium 100 mg 06/23/22 10:00 06/24/22 21:20 Docusate Sodium 100 Mg Capsule PO 07/23/22 09:59 100 mg BID DAYLIN Administration Donepezil HCl 5 mg 06/25/22 10:00 Donepezil Hcl 10 Mg Tablet PO 07/25/22 09:59 DAILY DAYLIN Escitalopram Oxalate 2.5 mg 06/22/22 14:00 06/24/22 08:10 Escitalopram Oxalate 10 Mg Tablet PO 07/22/22 13:59 2.5 mg DAILY DAYLIN Administration Famotidine 20 mg 06/22/22 22:00 06/24/22 21:21 Famotidine 20 Mg Tablet PO 07/22/22 21:59 20 mg BID DAYLIN Administration Hydromorphone HCl 0.5 mg 06/22/22 09:40 06/22/22 13:06 Hydromorphone 1 Mg/1ml Inj 1 Mg/Ml Syringe IV 06/27/22 09:39 0.5 mg Q2H PRN PRN Administration PAIN Sodium Chloride 1,000 mls @ 70 mls/hr 06/22/22 08:15 06/24/22 16:50 Sodium Chloride 0.9% 1000 Ml IV 07/22/22 08:14 70 mls/hr .[id number] DAYLIN Administration Ceftriaxone Sodium/Dextrose 1 g in 50 mls @ 100 mls/hr 06/22/22 16:55 06/24/22 10:32 Rocephin 1 Gm-D5w 50 Ml Bag IV 06/25/22 16:54 100 mls/hr Q24H10 DAYLIN Administration Latanoprost 0 ml 06/22/22 22:00 06/24/22 21:21 Latanoprost 2.5 Ml Bottle OP 07/22/22 21:59 2.5 ml HS DAYLIN Administration Memantine 5 mg 06/25/22 10:00 Memantine Hcl 5 Mg Tablet PO 07/25/22 09:59 DAILY DAYLIN Multivitamins/Minerals 1 tab 06/22/22 14:00 06/24/22 08:06 Beta-Carotene(A) W-C And E/Min 1 Tab Tablet PO 07/22/22 13:59 1 tab DAILY DAYLIN Administration Ondansetron HCl 4 mg 06/22/22 09:40 Ondansetron Hcl 4 Mg/2 Ml Vial IV 07/22/22 09:39 Q6H PRN PRN NAUSEA/VOMITING Timolol Maleate 0 ml 06/22/22 14:00 06/24/22 08:18 Timolol Maleate 0.25% 5 Ml Bottle Eye Drops OP 07/22/22 13:59 5 ml DAILY DAYLIN Administration Discontinued Medications Generic Name Dose Route Start Last Admin Trade Name Freq PRN Reason Stop Dose Admin Hydrocodone Bitart/Acetaminophen 1 tab 06/22/22 14:15 Hydrocodone/Apap 5/325 1 Tab Tablet PO 06/27/22 14:14 Q4H PRN PRN PAIN Hydromorphone HCl 0.5 mg 06/22/22 08:11 06/22/22 09:11 Hydromorphone 1 Mg/1ml Inj 1 Mg/Ml Syringe IV 06/22/22 08:12 0.5 mg STAT ONE Administration Hydromorphone HCl Confirm 06/22/22 09:08 Hydromorphone 1 Mg/1ml Inj 1 Mg/Ml Syringe Administered 06/22/22 09:09 Dose 1 mg .ROUTE .STK-MED ONE Intake & Output (Last 24 hours) 06/22/22 06/23/22 06/24/22 06/25/22 11:59 11:59 11:59 11:59 Intake Total 1547 1041 1894 Output Total 275 575 550 Balance 3179 437 3059 Weight 43 kg Laboratory Results (Last 24 hours) 06/25/22 06/24/22 06/24/22 01:15 14:45 14:45 Hgb 11.5 L D Hct 36.1 ABO Group A Rh Factor POSITIVE Antibody Screen NEGATIVE Crossmatch COMPATIBLE COMPATIBLE 06/24/22 12:39 Hgb 7.3 L Hct 22.9 L ABO Group Rh Factor Antibody Screen Crossmatch Orders (Last 24 hours) Category Date Time Status ABO TYPING Routine Lab 06/24/22 14:45 Completed Antibody Screen Routine Lab 06/24/22 14:45 Completed BLOOD COMPONENT REQUEST Urgent Lab 06/24/22 14:53 Completed HEMOGLOBIN AND HEMATOCRIT Stat Lab 06/24/22 12:39 Completed HEMOGLOBIN AND HEMATOCRIT Urgent Lab 06/25/22 01:15 Completed RH TYPING Routine Lab 06/24/22 14:45 Completed Donepezil HCl 10 mg [Aricept 10 MG] Med 06/25/22 10:00 Active 5 mg PO DAILY Memantine HCl 5 mg [Namenda 5 MG] Med 06/25/22 10:00 Active 5 mg PO DAILY PT Eval & Treat ( Order) ONCE PT 06/24/22 09:43 Active Patient Care Notes (Last 24 hours) 06/24/22 17:20 (created 06/24/22 18:35) Nursing Note by Sandrine Reich Blood transfusion started without difficulty, VS at start are as follows BP- 111/56, P- 66, T-97.7, 15 min after start BP- 107/54 P-66 T- 98.2 Initialized on 06/24/22 18:35 - END OF NOTE 06/24/22 14:46 Physical Therapy Note by Rambo(L#[id number])Laya HOLDING P.T. EVAL THIS DATE D/T CONTRAINDICATION D/T LOW HGB. PT. TO RECEIVE BLOOD TRANSFUSION. WILL ATTEMPT TOMORROW IF HGB IMPROVED. Initialized on 06/24/22 14:46 - END OF NOTE 06/24/22 10:04 Case Management Note by Alanna Faria S/Donte [facility] AT [facility]- PATIENT CAN RETURN WHEN MEDICALLY READY. NO PRECERT REQUIRED Initialized on 06/24/22 10:04 - END OF NOTE - Vitals & Intake/Output Vital Signs: Vital Signs Temperature 98.7 F 06/25/22 07:52 Pulse Rate 82 06/25/22 07:52 Respiratory Rate 16 06/25/22 07:52 Blood Pressure 134/64 06/25/22 07:52 O2 Sat by Pulse Oximetry 94 L 06/25/22 07:52 Intake & Output: Intake & Output 06/22/22 06/23/22 06/24/22 06/25/22 11:59 11:59 11:59 11:59 Intake Total 1547 1041 1894 Output Total 183 575 550 Balance 6560 516 9607 Weight 43 kg - Lab Result Diagrams: 06/25/22 01:15 02/05/23 10:08 Lab Results-Last 24 Hrs: Lab Results-Last 24 Hours 06/24/22 06/24/22 06/24/22 Range/Units 12:39 14:45 14:45 Hgb 7.3 L (12.0-16.0) g/dL Hct 22.9 L (35-47) % ABO Group A Rh Factor POSITIVE Antibody Screen NEGATIVE (NEGATIVE) Crossmatch COMPATIBLE COMPATIBLE (COMPATIBLE) 06/25/22 Range/Units 01:15 Hgb 11.5 L D (12.0-16.0) g/dL Hct 36.1 (35-47) % ABO Group Rh Factor Antibody Screen (NEGATIVE) Crossmatch (COMPATIBLE) Micro Results-Entire Visit: Microbiology 06/22/22 09:55 Urine Culture - Final Catherized <10K NORMAL SKIN ABDI PROBABLE SKIN CONTAMINANT - Procedures and Test Procedures and Tests throughout Hospitalization: Therapy Orders & Screens 06/23/22 14:09 Oxygen Nasal Cannula 3 lpm Comment: Diagnosis: SAH, Facial FX, Pelvic Fx,Fall, COPD 06/24/22 09:43 PT Eval & Treat (MD Order) ONCE Reason for Eval:: FALL AT THE TORRES Diagnosis: SAH, Facial FX, Pelvic Fx,Fall, COPD Discharge Exam General Appearance: no apparent distress, alert Neurologic Exam: alert, oriented x 3, cooperative, normal mood/affect, nml cerebellar function, sensation nml, No motor deficits Eye Exam: PERRL, EOMI, eyes nml inspection Ears, Nose, Throat Exam: normal ENT inspection, pharynx normal, moist mucous membranes Neck Exam: normal inspection, non-tender, supple, full range of motion Respiratory Exam: normal breath sounds, lungs clear, No respiratory distress Cardiovascular Exam: regular rate/rhythm, normal heart sounds Gastrointestinal/Abdomen Exam: soft, No tenderness, No mass Pelvic Exam: deferred Rectal Exam: deferred Back Exam: normal inspection, normal range of motion, No CVA tenderness, No vertebral tenderness Extremity Exam: normal inspection, normal range of motion Skin Exam: normal color, warm, dry Final Diagnosis/Problem List - Final Discharge Diagnosis/Problem (1) Subarachnoid hem w/o coma Current Visit: Yes Status: Resolved Code(s): S06.6X0A - TRAUM SUBRAC HEM W/O LOSS OF CONSCIOUSNESS, INIT (2) Anemia Current Visit: Yes Status: Chronic Code(s): D64.9 - ANEMIA, UNSPECIFIED (3) Facial bones, closed fracture Current Visit: Yes Status: Acute Code(s): S02.92XA - UNSP FRACTURE OF FACIAL BONES, INIT FOR CLOS FX (4) Fall Current Visit: Yes Status: Resolved Code(s): W19.XXXA - UNSPECIFIED FALL, INITIAL ENCOUNTER (5) Pelvic fracture Current Visit: Yes Status: Acute Code(s): S32.9XXA - FRACTURE OF UNSP PARTS OF LUMBOSACRAL SPINE AND PELVIS, INIT (6) Maxillary fracture Current Visit: Yes Status: Acute Code(s): S02.401A - MAXILLARY FRACTURE, UNSPECIFIED SIDE, INIT - Discharge Discharge Date: 06/25/22 Disposition: Home, Self-Care Condition: Stable Prescriptions: Continue clonazePAM [Clonazepam] 0.25 mg PO HS clonazePAM [Clonazepam] 0.125 mg PO DAILY Donepezil HCl 5 mg PO HS Escitalopram Oxalate [Lexapro] 2.5 mg PO DAILY Famotidine 20 mg [Pepcid 20 MG] 20 mg PO BID Ferrous Sulfate [Ferosul] 325 mg PO BID Latanoprost/Pf [Latanoprost 0.005% Eye Drop] 1 drop OP HS Memantine HCl 5 mg PO DAILY Timolol Maleate 0.25% Eye [Timolol 0.25% Opth Kimberly 5 ML] 1 drop OP DAILY Vits A,C,E/Lutein/Minerals [I-Maryam Tablet] 1 each PO DAILY Acetaminophen 325 mg [Tylenol 325 mg] 650 mg PO Q4H PRN PRN Reason: Pain Discontinued Clopidogrel Bisulfate [Plavix] 75 mg PO DAILY Follow up with: KRISTINE LUQUE MD [Primary Care Provider] -
[2022-06-25] MEDS: ROCEPHIN 1 Gm-D5w 50 ml Bag** 1 G/50 ML IVPB IV SCH (08:10)
[2022-06-25] MEDS: clonazePAM PO SCH (08:12)
[2022-06-25] MEDS: Docusate Sodium 100 MG PO SCH (08:15)
[2022-06-25] MEDS: Lexapro PO SCH (08:15)
[2022-06-25] MEDS: Pepcid 20 MG PO SCH (08:19)
[2022-06-25] MEDS: Ocuvite Tablet PO SCH (08:19)
[2022-06-25] MEDS: Timolol 0.25% Opth Sol 5 ML OP SCH (08:20)
[2022-06-25] MEDS ORDERED: Namenda 5 MG PO SCH (10:00)
[2022-06-25] MEDS ORDERED: Aricept 10 MG PO SCH (10:00)
== END 2022-06-25 10:35 | disposition home or self-care (01) | DRG 965 ==
LOC: ED 08:03 → MED SURG 10:40
PROVIDERS: ADMIT Family Medicine; ATTEND General Practice
DX: S06.6X0A Traumatic subarachnoid hemorrhage without loss of consciousness, initial encounter (principal); S32.9XXA Fracture of unspecified parts of lumbosacral spine and pelvis, initial encounter for closed fracture; D64.9 Anemia, unspecified; S02.92XA Unspecified fracture of facial bones, initial encounter for closed fracture; W19.XXXA Unspecified fall, initial encounter; S02.401A Maxillary fracture, unspecified side, initial encounter for closed fracture; I49.8 Other specified cardiac arrhythmias; E87.6 Hypokalemia; R34 Anuria and oliguria; D72.829 Elevated white blood cell count, unspecified; Z79.01 Long term (current) use of anticoagulants; Z79.899 Other long term (current) drug therapy; Z20.828 Contact with and (suspected) exposure to other viral communicable diseases
CPT/HCPCS: 36415; 36430; 51702; 70450; 70486; 71250; 72125; 74176; 80048; 80053; 81001; 82150; 83690; 84484; 85014; 85018; 85025; 85610; 85730; 86850; 86900; 86901; 86922; 87086; 93005; 94760; 96374; 99285; 99291; P9016; J0696; J1170; A9270-GY